=== PATIENT | male | born 1985 | race African-American/Black ===

== ENCOUNTER 2020-10-26 17:14 | Emergency (ER) | payer BC ==
[~2020-10-26] VITALS: Ht 170.2 cm; Wt 77.3 kg
[2020-10-26] MEDS ORDERED: GABA-1181 PO (17:19)
[2020-10-26] MEDS ORDERED: METF-960 PO (17:19)
[2020-10-26] MEDS ORDERED: SODIUM CHLORIDE 0.9% 1,000 ML IV ONE (17:45)
[2020-10-26] MEDS ORDERED: KETOROLAC TROMETHAMINE 30 MG/ML VIAL IVP ONE (18:15)
[2020-10-26 18:41] LABS: GLUCOSE,POINT OF CARE 371 MG/DL (70-110)
[2020-10-26 19:38] LABS: GLUCOSE,POINT OF CARE 285 MG/DL (70-110)
[2020-10-26 19:49] VITALS: BP 132/79
== END 2020-10-26 19:50 | disposition home or self-care (01) ==
LOC: EMS 17:17
DX: M54.5 Low back pain (principal); E11.9 Type 2 diabetes mellitus without complications; V43.52XA Car driver injured in collision with other type car in traffic accident, initial encounter; Y93.89 Activity, other specified; Y92.415 Exit ramp or entrance ramp of street or highway as the place of occurrence of the external cause; Y99.8 Other external cause status
CPT/HCPCS: 82962; 96361; 96374; 99283; J1885; J7030